=== PATIENT | female | born 1990 | race African-American/Black ===

== ENCOUNTER 2021-03-15 15:43 | Emergency (ER) | payer OTHER | END 2021-03-15 16:23 | disposition home or self-care (01) | LOC: CSHERS 15:43 | DX: Z00.00 Encounter for general adult medical examination without abnormal findings (principal); D64.9 Anemia, unspecified; F17.210 Nicotine dependence, cigarettes, uncomplicated | CPT/HCPCS: 99282 ==

== ENCOUNTER 2022-06-11 19:56 | Inpatient (IN) | payer OTHER, SELFPAY ==
[2022-06-11 20:26] VITALS: BMI 25.8
[2022-06-11 20:33] LABS: Fetal Membranes Rupture RUPTURE DETECTED (No Rupture)
[2022-06-11] MEDS ORDERED: Magnesium Sulfate 20 gm/500 ml 20 GM/500 ML BAG ONE (21:02)
[2022-06-11] MEDS ORDERED: Betamet Acet/Betamet Na Ph 30 MG/5 ML VIAL ONE (21:03)
[2022-06-11] MEDS ORDERED: hydrALAZINE 20 MG/ML VIAL SLOW IVP PRN (21:22)
[2022-06-11 21:59] LABS: Bilirubin Neg (Negative); Blood, Urine Negative (Negative); Clarity Clear (Clear); Glucose, Urine (Dipstick) Normal (Negative); Ketone, Urine Negative (Negative); Leukocyte 100 (Negative); Nitrite Negative (Negative); Protein, Urine (Dipstick) Negative (Neg-Trace); Specific Gravity, Urine 1.005 (1.002-1.036); Urobilinogen Normal mg/dL (Less than 2)
[2022-06-11 22:06] LABS: Urine Culture Reflex No No
[2022-06-11 22:13] LABS: Bacteria/HPF 1+ HPF (None Seen); RBC/HPF None Seen HPF (0-3); Squamous Epithelial 0-3 HPF (0-3); Transitional Epithelial 0-3 HPF (None Seen); WBC/HPF 0-3 HPF (0-3)
[2022-06-12] MEDS ORDERED: Promethazine HCl 25 MG/ML VIAL IM PRN (00:21)
[2022-06-12] MEDS ORDERED: Zolpidem Tartrate 5 MG TAB PO PRN (00:21)
[2022-06-12] MEDS ORDERED: hydrALAZINE 20 MG/ML VIAL SLOW IVP PRN (00:21)
[2022-06-12] MEDS ORDERED: Ondansetron PF 4 MG/2 ML Vial IVP PRN (00:21)
[2022-06-12] MEDS ORDERED: Calcium Gluc 4.6 MEQ/10 ML (100 MG/ML) SLOW IVP PRN (00:28)
[2022-06-12] MEDS ORDERED: Azithromycin 500 MG in Sodium Chloride 0.9% 250 ML 250 ML IVPB SCH (00:30)
[2022-06-12 01:03] LABS: Amphetamine Not Detected (NotDetected); Barbiturates Screen Not Detected (NotDetected); Benzodiazepine Screen Not Detected (NotDetected); Cocaine Metabolite Screen Not Detected (NotDetected); Methadone Not Detected (NotDetected); Methamphetamine Not Detected (NotDetected); Opiate Screen Not Detected (NotDetected); Oxycodone Screen Not Detected (NotDetected); Phencyclidine (PCP) Not Detected (NotDetected); THC/Cannabinoid Screen Detected (NotDetected); Tricyclic Screen Not Detected (NotDetected)
[2022-06-12] MEDS: Lactated Ringer's 1,000 ML IV SCH ×2 (01:07→17:57)
[2022-06-12] MEDS: Magnesium Sulfate 20 gm/500 ml 20 GM/500 ML BAG IVPB SCH ×3 (01:14→20:25)
[2022-06-12] MEDS: Betamet Acet/Betamet Na Ph 30 MG/5 ML VIAL IM SCH (01:20)
[2022-06-12 01:40] LABS: Hemoglobin 9.9 g/dL (12.0-15.5); Mean Corpuscular Hemoglobin 32.2 pg (27.0-33.0); Mean Corpuscular Volume 94.8 fl (81.6-98.3); Mean Platelet Volume 10.3 fl (7.4-10.4); Platelet Count 238 10x3/uL (150-450); RBC Distribution Width 12.6 % (11.5-14.5); Red Blood Cell (RBC) Count 3.07 10x6/uL (3.90-5.03); White Blood Cell (WBC) Count 11.8 10x3/uL (3.5-10.5)
[2022-06-12 02:12] LABS: Hep B Surf Ag Non-Reactive S/CO (NonReactive); Syphilis Antibody Nonreactive (Nonreactive); Syphilis Antibody Index 0.18 S/CO (<1.00 Non-Reactive)
[2022-06-12 02:13] LABS: HBSAg Index 0.17 S/CO (0-0.99)
[2022-06-12 03:26] LABS: SARS-CoV-2 NAA Rapid Test Not Detected (NotDetected)
[2022-06-12 05:06] LABS: HIV (1/2) Antibody/Antigen Non-Reactive (NonReactive); HIV 1/2 INDEX 0.08 S/CO (<1.00)
[2022-06-12] MEDS: Ampicillin 2 GM in Sodium Chloride 0.9% 100 ML IVPB SCH ×3 (05:53→17:57)
[2022-06-12] MEDS: metroNIDAZOLE 500 MG TAB PO SCH ×2 (09:00→21:43)
[2022-06-12] MEDS: Acetaminophen 500 MG TAB PO PRN (14:41)
[2022-06-12 16:22] LABS: Chlamydia by PCR DETECTED (NotDetected); GC by PCR Not Detected (NotDetected)
[2022-06-12] MEDS: Calcium Carbonate 500 MG ChewTAB PO PRN (20:25)
[2022-06-13] MEDS: Ampicillin 2 GM in Sodium Chloride 0.9% 100 ML IVPB SCH ×4 (00:33→20:26)
[2022-06-13] MEDS: Betamet Acet/Betamet Na Ph 30 MG/5 ML VIAL IM SCH (01:38)
[2022-06-13] MEDS: Calcium Carbonate 500 MG ChewTAB PO PRN ×2 (04:08→22:11)
[2022-06-13] MEDS: Magnesium Sulfate 20 gm/500 ml 20 GM/500 ML BAG IVPB SCH (07:15)
[2022-06-13] MEDS ORDERED: Azithromycin 500 MG in Sodium Chloride 0.9% 250 ML 250 ML IVPB SCH (08:30)
[2022-06-13] MEDS: metroNIDAZOLE 500 MG TAB PO SCH ×2 (11:21→20:26)
[2022-06-13] MEDS ORDERED: Azithromycin 500 MG VIAL ONE (12:36)
[2022-06-13] MEDS: Lactated Ringer's 1,000 ML IV SCH ×2 (13:56→13:57)
[2022-06-14] MEDS ORDERED: Lidocaine 2% Viscous Solution 10 ML, Aluminum & Magnesium Hydroxide 30 ML SSW SCH (00:30)
[2022-06-14] MEDS: AMOXicillin 250 MG CAP PO SCH ×4 (03:00→21:27)
[2022-06-14] MEDS: metroNIDAZOLE 500 MG TAB PO SCH ×2 (08:58→21:27)
[2022-06-14] MEDS: Lactated Ringer's 1,000 ML IV SCH ×2 (12:39→16:13)
[2022-06-14] MEDS ORDERED: Polyethylene Glycol 3350 17 GM Packet PO PRN (15:20)
[2022-06-14] MEDS: Calcium Carbonate 500 MG ChewTAB PO PRN (18:17)
[2022-06-15] MEDS: Calcium Carbonate 500 MG ChewTAB PO PRN ×2 (01:10→17:57)
[2022-06-15] MEDS: Lactated Ringer's 1,000 ML IV SCH ×4 (01:15→23:26)
[2022-06-15] MEDS: AMOXicillin 250 MG CAP PO SCH ×3 (08:57→21:24)
[2022-06-15] MEDS: metroNIDAZOLE 500 MG TAB PO SCH ×2 (08:57→21:24)
[2022-06-15] MEDS: Acetaminophen 500 MG TAB PO PRN (13:40)
[2022-06-15] MEDS ORDERED: GUAIFENESIN SF SOLN 200 MG/10 ML UDCUP PO PRN (13:56)
[2022-06-15] MEDS ORDERED: Cyclobenzaprine 10 MG TAB PO PRN (17:55)
[2022-06-16] MEDS: Calcium Carbonate 500 MG ChewTAB PO PRN (03:25)
[2022-06-16] MEDS: Acetaminophen 500 MG TAB PO PRN (03:25)
[2022-06-16] MEDS: Lactated Ringer's 1,000 ML IV SCH ×2 (09:00→19:04)
[2022-06-16] MEDS: AMOXicillin 250 MG CAP PO SCH ×2 (09:00→15:48)
[2022-06-16] MEDS: metroNIDAZOLE 500 MG TAB PO SCH (09:00)
[2022-06-16] MEDS: Prenatal Vitamin 1 TAB PO SCH (09:00)
[2022-06-16 12:55] LABS: Iron 30 ug/dL (50-170); Iron Binding Capacity, Total 381 mcg/dL (265-497)
[2022-06-16] MEDS ORDERED: Fentanyl 2 mcg/Bup 0.1% Cadd 100 ML ONE (22:00)
[2022-06-16] MEDS ORDERED: Lactated Ringer's 500 ML IV PRN (22:24)
[2022-06-16] MEDS ORDERED: diphenhydrAMINE 50 MG/ML VIAL IVP PRN (22:24)
[2022-06-16] MEDS ORDERED: Acetaminophen 325 MG TAB PO PRN (22:24)
[2022-06-16] MEDS ORDERED: Promethazine HCl 25 MG/ML VIAL IM PRN (22:24)
[2022-06-16] MEDS ORDERED: Naloxone HCl 0.4 mg/ml Vial IVP PRN ×2 (22:24)
[2022-06-16] MEDS ORDERED: Ondansetron PF 4 MG/2 ML Vial IVP PRN (22:24)
[2022-06-16] MEDS ORDERED: Moisturizing Cream (Eucerin) 113 GM JAR TOP PRN (22:24)
[2022-06-16] MEDS ORDERED: ePHEDrine Sulfate 50 MG/10 ML VIAL SLOW IVP PRN (22:24)
[2022-06-16] MEDS ORDERED: Fentanyl 2 mcg/Bupivacaine 0.1% Cassette 100 ML EPIDURAL SCH (22:30)
[2022-06-16] MEDS ORDERED: Communication Order-Pharmacy FS SCH (22:30)
[2022-06-16] MEDS ORDERED: NS w/ Oxytocin 30 units 500 ML ONE (23:06)
[2022-06-16] MEDS ORDERED: Lidocaine 1% (PF) 30 ML VIAL ONE (23:06)
[2022-06-16] MEDS ORDERED: Misoprostol 200 MCG TAB ONE (23:06)
[2022-06-16] MEDS ORDERED: Methylergonovine 0.2 MG/ML VIAL ONE (23:07)
[2022-06-16] MEDS ORDERED: Carboprost 250 MCG/ML AMP ONE (23:07)
[2022-06-17] MEDS ORDERED: Tranexamic Acid 1,000 MG/10 ML VIAL ONE (00:29)
[2022-06-17] MEDS ORDERED: Ampicillin 2 GM VIAL ONE (00:48)
[2022-06-17] MEDS ORDERED: Gentamicin Sulfate 80 MG in Premix Bag 1 BAG IVPB SCH (01:00)
[2022-06-17] MEDS ORDERED: hydrALAZINE 20 MG/ML VIAL SLOW IVP PRN (02:06)
[2022-06-17] MEDS ORDERED: Bisacodyl 10 MG SUPP PR PRN (02:06)
[2022-06-17] MEDS ORDERED: Milk Of Magnesia 30 ML UDCUP PO PRN (02:06)
[2022-06-17] MEDS ORDERED: Boostrix 0.5 ML (Tdap) VIAL IM ONE (02:06)
[2022-06-17] MEDS ORDERED: Methylergonovine 0.2 MG/ML VIAL IM SCH (02:15)
[2022-06-17 02:17] LABS: RapidComm Collect By CBN
[2022-06-17 02:21] LABS: RapidComm Collect By CBN; pH (Cord, venous) 7.386 (7.250-7.350)
[2022-06-17] MEDS ORDERED: NS w/ Oxytocin 30 units 500 ML ONE (02:25)
[2022-06-17] MEDS ORDERED: NS w/ Oxytocin 30 units 500 ML IV SCH (02:30)
[2022-06-17] MEDS: Ampicillin/Sulbactam 3 GM in Sodium Chloride 0.9% 100 ML IVPB SCH ×3 (03:10→15:31)
[2022-06-17] MEDS: Calcium Carbonate 500 MG ChewTAB PO PRN (03:54)
[2022-06-17 05:40] LABS: Hemoglobin 10.3 g/dL (12.0-15.5); Mean Corpuscular HGB CONC 34.7 g/dL (32.0-36.0); Mean Corpuscular Hemoglobin 32.2 pg (27.0-33.0); Mean Corpuscular Volume 92.8 fl (81.6-98.3); Mean Platelet Volume 10.5 fl (7.4-10.4); Platelet Count 248 10x3/uL (150-450); RBC Distribution Width 12.5 % (11.5-14.5); White Blood Cell (WBC) Count 28.5 10x3/uL (3.5-10.5)
[2022-06-17] MEDS: Ibuprofen 800 MG TAB PO SCH ×3 (05:58→21:09)
[2022-06-17] MEDS ORDERED: Ampicillin 2 GM in Sodium Chloride 0.9% 100 ML IVPB SCH (06:00)
[2022-06-17] MEDS: metroNIDAZOLE 500 MG TAB PO SCH ×3 (06:09→21:09)
[2022-06-17] MEDS: AMOXicillin 250 MG CAP PO SCH (06:12)
[2022-06-17] MEDS: Lactated Ringer's 1,000 ML IV SCH (06:12)
[2022-06-17 06:26] LABS: MDiff Complete? YES
[2022-06-17 06:29] LABS: Band 9 % (5-11); Lymphocytes 3 % (21-51); Monocytes 9 % (0-10); Neutrophil 79 % (42-75)
[2022-06-17 06:30] LABS: Platelet Morphology Comment Appears Adequate; RBC Morphology Normal
[2022-06-17] MEDS: Ferrous Sulfate 325 MG TAB PO SCH (06:58)
[2022-06-17] MEDS: Prenatal Vitamin 1 TAB PO SCH (07:35)
[2022-06-17] MEDS: Docusate 100 MG CAP PO SCH ×2 (07:35→21:09)
[2022-06-17] MEDS ORDERED: Lidocaine 2% PF 5 ML VIAL IM SCH (19:15)
[2022-06-17] MEDS ORDERED: Ampicillin/Sulbactam 3 GM VIAL IM SCH ×2 (19:15)
[2022-06-18 05:15] LABS: Hemoglobin 9.2 g/dL (12.0-15.5); Mean Corpuscular HGB CONC 34.7 g/dL (32.0-36.0); Mean Corpuscular Hemoglobin 32.3 pg (27.0-33.0); Mean Platelet Volume 10.4 fl (7.4-10.4); Platelet Count 230 10x3/uL (150-450); RBC Distribution Width 12.5 % (11.5-14.5); Red Blood Cell (RBC) Count 2.85 10x6/uL (3.90-5.03); White Blood Cell (WBC) Count 20.1 10x3/uL (3.5-10.5)
[2022-06-18] MEDS: Ibuprofen 800 MG TAB PO SCH ×2 (05:36→13:29)
[2022-06-18 06:01] LABS: MDiff Complete? YES
[2022-06-18 06:06] LABS: Band 2 % (5-11); Eosinophils 2 % (0-10); Lymphocytes 6 % (21-51); Monocytes 5 % (0-10); Neutrophil 85 % (42-75)
[2022-06-18 06:07] LABS: Platelet Morphology Comment Appears Adequate
[2022-06-18 06:08] LABS: RBC Morphology Normal
[2022-06-18 07:27] VITALS: BP 98/55; TEMP 97.8
[2022-06-18] MEDS: Ferrous Sulfate 325 MG TAB PO SCH ×2 (07:59→11:47)
[2022-06-18] MEDS: Prenatal Vitamin 1 TAB PO SCH ×2 (07:59→11:50)
[2022-06-18] MEDS: Docusate 100 MG CAP PO SCH ×2 (07:59→11:50)
[2022-06-18] MEDS: metroNIDAZOLE 500 MG TAB PO SCH (08:02)
== END 2022-06-18 16:18 | disposition home or self-care (01) | DRG 805 ==
LOC: CSHLD/OP 19:56 → CSHLD 06-12 01:02 → CSHANTE 06-14 15:30 → CSHLD 06-16 02:50 → CSHPP 06-17 04:51
PROVIDERS: ADMIT Obstetrics & Gynecology; ATTEND Obstetrics & Gynecology
PROC: 10E0XZZ Delivery of Products of Conception, External Approach (ICD-10-PCS; principal; 2022-06-17)
DX: O42.013 Preterm premature rupture of membranes, onset of labor within 24 hours of rupture, third trimester (principal); O41.1230 Chorioamnionitis, third trimester, not applicable or unspecified; Z37.0 Single live birth; O60.14X0 Preterm labor third trimester with preterm delivery third trimester, not applicable or unspecified; O99.324 Drug use complicating childbirth; O98.82 Other maternal infectious and parasitic diseases complicating childbirth; Z3A.31 31 weeks gestation of pregnancy; Z20.822 Contact with and (suspected) exposure to COVID-19; F12.10 Cannabis abuse, uncomplicated; A59.8 Trichomoniasis of other sites; O76 Abnormality in fetal heart rate and rhythm complicating labor and delivery; O99.02 Anemia complicating childbirth; O69.81X0 Labor and delivery complicated by cord around neck, without compression, not applicable or unspecified; D50.0 Iron deficiency anemia secondary to blood loss (chronic)
CPT/HCPCS: 36415; 51702; 76815; 76819; 80306; 81001; 82728; 82805; 83540; 83550; 84112; 85025; 85027; 86762; 86780; 86850; 86900; 86901; 87070; 87081; 87086; 87205; 87340; 87389; 87480; 87491; 87510; 87591; 87660; 88307; 99285; J0290; J0295; J0456; J0702; J1580; J2001; J2210; J3475; J3490; J7050; J7120; U0002

== ENCOUNTER 2023-07-16 09:14 | Inpatient (IN) | payer OTHER ==
[2023-07-16 09:27] VITALS: BMI 24.2
[2023-07-16] MEDS ORDERED: fentaNYL 50 mcg/mL 1 mL Vial SLOW IVP PRN (10:49)
[2023-07-16] MEDS ORDERED: Ibuprofen 800 MG TAB PO PRN (10:49)
[2023-07-16] MEDS ORDERED: Diphenoxylate HCl/Atropine Tablet PO PRN (10:49)
[2023-07-16] MEDS ORDERED: Lidocaine 1% (PF) 30 ML VIAL SC PRN (10:49)
[2023-07-16] MEDS ORDERED: Promethazine HCl 25 MG/ML VIAL IM PRN ×3 (10:49→23:17)
[2023-07-16] MEDS ORDERED: Carboprost 250 MCG/ML AMP IM PRN (10:49)
[2023-07-16] MEDS ORDERED: Acetaminophen 500 MG TAB PO PRN (10:49)
[2023-07-16] MEDS ORDERED: HYDROcodone/Acetaminophen 5/325 mg Tablet PO PRN ×3 (10:49→23:17)
[2023-07-16] MEDS ORDERED: Misoprostol 200 MCG TAB PR PRN (10:49)
[2023-07-16] MEDS ORDERED: Ondansetron PF 4 MG/2 ML Vial IVP PRN ×3 (10:49→23:17)
[2023-07-16] MEDS ORDERED: hydrALAZINE 20 MG/ML VIAL SLOW IVP PRN ×2 (10:49→23:17)
[2023-07-16] MEDS ORDERED: Methylergonovine 0.2 MG/ML VIAL IM PRN (10:49)
[2023-07-16] MEDS ORDERED: Tranexamic Acid 1,000 MG/10 ML VIAL IVP PRN (10:49)
[2023-07-16] MEDS ORDERED: Oxytocin 30 units/NS 500 ML 500 ML IV SCH (11:00)
[2023-07-16] MEDS ORDERED: Betamet Acet/Betamet Na Ph 30 MG/5 ML VIAL ONE (11:07)
[2023-07-16] MEDS ORDERED: Penicillin G Potassium 5 MILL.UNITS VIAL ONE (11:07)
[2023-07-16 11:47] LABS: Hematocrit 27.2 % (34.9-44.5); Hemoglobin 9.2 g/dL (12.0-15.5); Mean Corpuscular HGB CONC 33.8 g/dL (32.0-36.0); Mean Corpuscular Hemoglobin 32.2 pg (27.0-33.0); Mean Corpuscular Volume 95.1 fl (81.6-98.3); Mean Platelet Volume 9.5 fl (7.4-10.4); Platelet Count 242 10x3/uL (150-450); RBC Distribution Width 12.2 % (11.5-14.5); Red Blood Cell (RBC) Count 2.86 10x6/uL (3.90-5.03); White Blood Cell (WBC) Count 11.9 10x3/uL (3.5-10.5)
[2023-07-16] MEDS ORDERED: Betamet Acet/Betamet Na Ph 30 MG/5 ML VIAL IM SCH (12:00)
[2023-07-16 12:20] LABS: Hep B Surf Ag - L&D Non-Reactive S/CO (NonReactive)
[2023-07-16] MEDS: Ampicillin 2 GM in Sodium Chloride 0.9% 100 ML IVPB SCH ×2 (12:30→18:27)
[2023-07-16 12:37] LABS: Syphilis Antibody Nonreactive (Nonreactive); Syphilis Antibody Index 0.06 S/CO (<1.00 Non-Reactive)
[2023-07-16] MEDS ORDERED: fentaNYL/Ropivacaine Epidural 100 ML ONE (13:33)
[2023-07-16] MEDS ORDERED: Naloxone HCl 0.4 mg/ml Vial IVP PRN ×2 (13:43)
[2023-07-16] MEDS ORDERED: Acetaminophen 325 MG TAB PO PRN (13:43)
[2023-07-16] MEDS ORDERED: Moisturizing Cream (Eucerin) 113 GM JAR TOP PRN (13:43)
[2023-07-16] MEDS ORDERED: ePHEDrine Sulfate 50 MG/10 ML VIAL SLOW IVP PRN (13:43)
[2023-07-16] MEDS ORDERED: diphenhydrAMINE 50 MG/ML VIAL IVP PRN (13:43)
[2023-07-16] MEDS ORDERED: Lactated Ringer's 500 ML IV PRN (13:43)
[2023-07-16] MEDS ORDERED: Communication Order-Pharmacy FS SCH (13:45)
[2023-07-16] MEDS ORDERED: fentaNYL 2 mcg/Ropivacaine 0.2% Epidural 100 ML CADD EPIDURAL SCH (13:45)
[2023-07-16] MEDS: Lactated Ringer's 1,000 ML IV SCH ×2 (17:22→18:03)
[2023-07-16] MEDS ORDERED: Oxytocin 30 units/NS 500 ML 500 ML IVPB SCH (19:15)
[2023-07-16] MEDS ORDERED: Bisacodyl 10 MG SUPP PR PRN (23:17)
[2023-07-16] MEDS ORDERED: diphenhydrAMINE 25 MG CAP PO PRN (23:17)
[2023-07-16] MEDS ORDERED: Boostrix 0.5 ML (Tdap) VIAL (>/=7 yrs of age) IM ONE (23:17)
[2023-07-16] MEDS ORDERED: Milk Of Magnesia 30 ML UDCUP PO PRN (23:17)
[2023-07-16] MEDS ORDERED: Docusate 100 MG CAP PO SCH (23:45)
[2023-07-17] MEDS: Ibuprofen 800 MG TAB PO SCH ×4 (00:35→23:37)
[2023-07-17] MEDS: Docusate 100 MG CAP PO SCH ×2 (09:16→19:58)
[2023-07-17] MEDS: Prenatal Vitamin 1 TAB PO SCH (09:16)
[2023-07-17] MEDS: Ferrous Sulfate 325 MG TAB PO SCH ×2 (09:17→16:26)
[2023-07-18] MEDS: Prenatal Vitamin 1 TAB PO SCH (09:09)
[2023-07-18] MEDS: Docusate 100 MG CAP PO SCH (09:09)
[2023-07-18] MEDS: Ibuprofen 800 MG TAB PO SCH (09:10)
[2023-07-18] MEDS: Ferrous Sulfate 325 MG TAB PO SCH (09:10)
[2023-07-18 12:16] VITALS: BP 112/66; TEMP 98.7
== END 2023-07-18 15:00 | disposition home or self-care (01) | DRG 807 ==
LOC: CSHLD/OP 09:14 → CSHLD 10:03 → CSHPP 22:35
PROVIDERS: ADMIT Family Medicine; ATTEND Family Medicine
PROC: 10E0XZZ Delivery of Products of Conception, External Approach (ICD-10-PCS; principal; 2023-07-16)
DX: O42.013 Preterm premature rupture of membranes, onset of labor within 24 hours of rupture, third trimester (principal); Z37.0 Single live birth; Z3A.35 35 weeks gestation of pregnancy
CPT/HCPCS: 36415; 51702; 85027; 86780; 86850; 86900; 86901; 87340; 88307; 99285; J0290; J2540; J3490; J7120